=== PATIENT | male | born 1955 | race Caucasian/White ===

== ENCOUNTER 2017-12-01 08:23 | Emergency (ER) | payer BC ==
--- NOTE | 2017-12-01 09:29 | EDM.PDOC ---
ED HPI GENERAL MEDICAL PROBLEM - General Chief Complaint: Eye Problems Stated Complaint: VISION ISSUES Time Seen by Provider: 12/01/17 08:51 Source of Information: Reports: Patient History Limitations: Reports: No Limitations - History of Present Illness INITIAL COMMENTS - FREE TEXT/NARRATIVE: The patient presents with some vision problems. 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 He said in his right eye he had a fog come over it and in the left eye he said was oscillating back and forth. He pulled over and had his passenger drive. This lasted about 2 to 3 minutes. He has never had this happen before or since then. He has no headache , fever, chills, cough, chest pain, shortness of breath, abdominal pain, nausea , vomiting or abdominal pain. He has hypertension but that is under control. He has no numbness or weakness. He has no visual problems now. Onset: Sudden Duration: Day(s): (Thursday) Severity: Moderate Improves with: Reports: None Worsens with: Reports: None Associated Symptoms: Reports: No Other Symptoms - Related Data Allergies Allergy/AdvReac Type Severity Reaction Status Date / Time bee pollen Allergy Anaphylactic Verified 12/01/17 08:55 Shock Home Meds: Home Meds EPINEPHrine [Epipen 2-Matt] 0.3 ml SQ ASDIRECTED PRN 12/01/17 [History] Lisinopril 20 mg PO DAILY 12/01/17 [History] amLODIPine [Norvasc] 5 mg PO BEDTIME 12/01/17 [History] Past Medical History HEENT History: Reports: Impaired Vision Other HEENT History: reading glasses Cardiovascular History: Reports: Hypertension Musculoskeletal History: Reports: Back Pain, Chronic, Fracture - Infectious Disease History Infectious Disease History: Reports: Chicken Pox, Measles - Past Surgical History GI Surgical History: Reports: Hernia, Abdominal, Hernia, Inguinal, Hernia Repair /Other Musculoskeletal Surgical History: Reports: Shoulder Surgery Social & Family History - Tobacco Use Smoking Status *Q: Current Every Day Smoker Years of Tobacco use: 40 Packs/Tins Daily: 0.5 Second Hand Smoke Exposure: Yes - Caffeine Use Caffeine Use: Reports: Coffee, Soda - Recreational Drug Use Recreational Drug Use: No ED ROS GENERAL - Review of Systems Review Of Systems: See Below Constitutional: Reports: No Symptoms HEENT: Reports: Other (Visual changes) Respiratory: Reports: No Symptoms Cardiovascular: Reports: No Symptoms Endocrine: Reports: No Symptoms GI/Abdominal: Reports: No Symptoms : Reports: No Symptoms Musculoskeletal: Reports: No Symptoms Skin: Reports: No Symptoms Neurological: Reports: No Symptoms ED EXAM GENERAL W FULL EYE - Physical Exam Exam: See Below Exam Limited By: No Limitations General Appearance: Alert, No Apparent Distress Eye Exam: Bilateral Eye: EOMI, PERRL Visual Acuity (R) 20/: 25 Visual Acuity (L) 20/: 25 With Correction: No Eyelids: Bilateral: Normal Appearance Conjunctiva & Sclera: Bilateral: Normal Appearance Cornea Exam: Bilateral: Normal Appearance Extraocular Movements: Bilateral: Intact Pupillary Size: Bilateral: 4 mm Pupillary Reaction: Bilateral: Brisk Anterior Chamber: Bilateral: Normal Appearance Posterior Chamber: Bilateral: Normal Funduscopic Ears: Normal External Exam Nose: Normal Inspection Head: Atraumatic, Normocephalic Neck: Normal Inspection Respiratory/Chest: No Respiratory Distress, Lungs Clear, Normal Breath Sounds Cardiovascular: Regular Rate, Rhythm, No Edema, No Murmur GI/Abdominal: Soft, Non-Tender, No Organomegaly, No Mass Back Exam: Normal Inspection Extremities: Normal Inspection Neurological: Alert, Oriented, No Motor/Sensory Deficits Skin Exam: Warm, Dry Course - Vital Signs Last Recorded V/S: Last Vital Signs Temp 97.6 F 12/01/17 08:45 Pulse 84 12/01/17 08:45 Resp 18 12/01/17 08:45 BP 144/86 H 12/01/17 08:45 Pulse Ox 96 12/01/17 08:45 - Orders/Labs/Meds Orders: Active Orders 24 hr Category Date Time Status Cardiac Monitoring [RC] . DIRECTED Care 12/01/17 09:07 Active Labs: Laboratory Tests 12/01/17 12/01/17 Range/Units 09:55 09:55 WBC 8.62 (4.23-9.07) K/mm3 RBC 5.80 (4.63-6.08) M/mm3 Hgb 17.0 (13.7-17.5) gm/L Hct 51.1 H (40.1-51.0) % MCV 88.1 (79.0-92.2) fl MCH 29.3 (25.7-32.2) pg MCHC 33.3 (32.2-35.5) g/dl RDW Std Deviation 46.1 H (35.1-43.9) fL Plt Count 263 (163-337) K/mm3 MPV 9.8 (9.4-12.3) fl Neut % (Auto) 62.5 (34.0-67.9) % Lymph % (Auto) 27.4 (21.8-53.1) % [place] % (Auto) 8.7 (5.3-12.2) % Eos % (Auto) 0.5 L (0.8-7.0) Baso % (Auto) 0.6 (0.1-1.2) % Neut # (Auto) 5.39 H (1.78-5.38) K/mm3 Lymph # (Auto) 2.36 (1.32-3.57) K/mm3 [place] # (Auto) 0.75 (0.30-0.82) K/mm3 Eos # (Auto) 0.04 (0.04-0.54) K/mm3 Baso # (Auto) 0.05 (0.01-0.08) K/mm3 Sodium 136 (136-145) mEq/L Potassium 4.5 (3.5-5.1) mEq/L Chloride 104 (98-107) mEq/L Carbon Dioxide 25 (21-32) mEq/L Anion Gap 11.5 (5-15) BUN 24 H (7-18) mg/dL Creatinine 1.0 (0.7-1.3) mg/dL Est Cr Clr Drug Dosing 81.58 mL/min Estimated GFR (MDRD) > 60 (>60) mL/min BUN/Creatinine Ratio 24.0 H (14-18) Glucose 118 H (80-115) mg/dL Calcium 9.0 (8.5-10.1) mg/dL Magnesium 1.9 (1.8-2.4) mg/dl Total Bilirubin 0.6 (0.2-1.0) mg/dL AST 16 (15-37) U/L ALT 25 (16-63) U/L Alkaline Phosphatase 95 (46-116) U/L Total Protein 7.0 (6.4-8.2) g/dl Albumin 3.5 (3.4-5.0) g/dl Globulin 3.5 gm/dL Albumin/Globulin Ratio 1.0 (1-2) - Re-Assessments/Exams Free Text/Narrative Re-Assessment/Exam: 12/01/17 10:34 His CBC and CMP look good. I am not sure what caused his vision changes. It does not appear to be as stroke. I will like him to follow up with an hot stick worker. Departure - Departure Time of Disposition: 10:35 Disposition: Home, Self-Care 01 Condition: Good Clinical Impression: Vision changes - Discharge Information Referrals: PCP,Not In Area [Primary Care Provider] - Jane Lucas [Physician] - 1 Week Forms: ED Department Discharge Additional Instructions: Follow up with Dr Lucas in a week and also follow up with an hot stick worker [facility]. Please return if you are worse. - My Orders Last 24 Hours: My Active Orders 12/01/17 09:07 Cardiac Monitoring [RC] . DIRECTED - Assessment/Plan Last 24 Hours: My Active Orders 12/01/17 09:07 Cardiac Monitoring [RC] . DIRECTED
== END 2017-12-01 10:59 | disposition home or self-care (01) ==
LOC: JD.ED 08:23
DX: H53.8 Other visual disturbances (principal); I10 Essential (primary) hypertension; F17.210 Nicotine dependence, cigarettes, uncomplicated; Z91.030 Bee allergy status; Z79.899 Other long term (current) drug therapy
CPT/HCPCS: 36415; 80053; 83735; 85025; 99282; 99284